=== PATIENT | male | born 1965 | race Caucasian/White ===

== ENCOUNTER 2017-04-03 17:54 | Inpatient (IN) | payer OTHER ==
[~2017-04-03] VITALS: Ht 121.9 cm; Wt 59.4 kg
--- NOTE | ~2017-04-03 | EKG ---
[address] [address] ELECTROCARDIOGRAM REPORT Name: SARASHAYNA A Room #: 170-4 ADM IN ..#: [id number] Admission: 04/03/17 Attend Phys: Daniel Cardoso Discharge: Date of : 67 Report #: [id number] THIS REPORT FOR: //name// [facility] ED Test Date: 2017-04-03 Test Time: 18:11:22 Pat Name: SHAYNA RUIZ Department: Room: [facility] Gender: M [employer] Person: NANCIE : 1965 Requested By: Chaka Castro Order Number: [id number] MD: Felipe Oquendo Measurements Intervals [place] Rate: 81 P: 17 MD: 122 QRS: -3 QRSD: 87 T: 85 QT: 390 QTc: 453 Interpretive Statements Sinus rhythm Compared to ECG 03/27/2017 07:43:39 Sinus bradycardia no longer present ST (T wave) deviation no longer present Prolonged QT interval no longer present Electronically Signed On 04-03-2017 21:15:15 CARE PROGRAM DIRECTOR by Felipe Oquendo [email or web address] <ELECTRONICALLY SIGNED> By: Felipe Oquendo MD 04/03/175 10 10 Felipe Oquendo MD /EPI
--- NOTE | ~2017-04-03 | HC ---
[facility] [place] [address] CONSULTATION Name: SHAYNA RUIZ Room #: 430-P [facility] IN .R.#: [id number] Admission: 04/03/17 Attend Phys: Celso Prado MD Discharge: Date of : 67 Report #: [id number] THIS REPORT FOR: //name// CC: Celso Peters DATE OF SERVICE: 04/04/2017 REASON FOR CONSULTATION: End-stage renal disease. HISTORY OF PRESENT ILLNESS: The patient is well known to our service. He has been seen multiple previous times for admission at this hospital. He is a chronic diabetic patient with severe cognitive impairment after previous intracranial hemorrhage. He is a chronic dialysis patient, lives at [facility]. He was discharged a couple of days ago to [place], but failed to get dialysis for reasons that are not entirely clear. He did go to his usual chronic unit, but for some reason they wound not accept him back for dialysis, so he missed his dialysis and now he is back here in his usual state of ill health. PAST MEDICAL HISTORY: Longstanding diabetes, bilateral koucj-spo-bxut amputations, bilateral failed arm fistula, dialyzing with Tesio catheter; coronary artery disease, previous coronary intervention and stents; frequent nausea and vomiting, he had a PEG tube, but that came out and he has been eating. SOCIAL HISTORY: Lives in an extended care facility and is severely cognitively impaired. REVIEW OF SYSTEMS: Cannot be taken due to his poor mental status. HOME MEDICATIONS: As listed include hydralazine 25 mg q.i.d., Renvela 1600 mg with meals, Lipitor 40 mg daily, Plavix 75 mg daily, Pepcid 20 mg daily, Synthroid 25 mcg daily, lisinopril 20 mg daily, nicotine patch, doxazosin 4 mg daily, amlodipine 10 mg daily, aspirin 81 mg daily, Keppra 500 mg daily, Seroquel 25 mg at bedtime, insulin, Requip 1 mg at bedtime. PHYSICAL EXAMINATION: GENERAL: This is a chronically ill-appearing patient, very lethargic, seen in bed, really not cooperating with questioning or exam. SKIN: Relatively unremarkable. SKELETAL: Bilateral xhkig-zhw-uhii amputations. No edema. HEENT: Extraocular movements cannot be tested. Pupils react. Vision appears to be intact. Mucous membranes moist. NECK: Supple. CHEST: Clear to auscultation. [facility] [address] [place] [address] CONSULTATION Name: SHAYNA RUIZ Room #: 430-P [facility] IN .R.#: [id number] Admission: 04/03/17 Attend Phys: Celso Prado MD Discharge: Date of : 67 Report #: [id number] HEART: Regular. ABDOMEN: Soft, no edema. ASSESSMENT: 1. End-stage renal disease. He is in need of dialysis. He is due for dialysis. We will dialyze him today, orders are written. 2. Severe cognitive impairment secondary to previous intracranial hemorrhage. 3. Diabetes mellitus with triopathy. 4. Peripheral arterial disease, status post bilateral qgnxj-nuc-hdle amputations. <ELECTRONICALLY SIGNED> By: Alex Carroll MD 04/06/17 1044 [id number] Alex Carroll MD /nt
[~2017-04-03 17:54] MED LIST: ALTACE 1.25 M1.25 M1 PO; AMLODIPINE BESY10 MG PO; ANTACID650 MG PO; ARANESP 4040 MCG/0.4 IJ; ASPIR 8181 MG PER TUBE; ASPIR 8181 MG PO; ASPIRIN EC81 M1 PO; ATORVASTATIN CA10 MG PO; BENADRYL25 MG PO; CARDURA4 MG PO; CARVEDILOL12.5 MG PO; CLOPIDOGREL75 MG PO; COREG6.25 MG; CYCLOBENZAPRINE10 MG PO; DOCUSATE SODIU100 MG PO; DUONEB 2.5-0.5 M3 ML INH; FLAGYL500 MG PO; FLUCONAZOLE 10100 MG PO; GLUCOSE GEL38 GM PO; GLUCOSE SHOT; GLUCOSE4 GM PO; HUMALOG100 UNIT/1 SUBQ; HYDRALAZINE 2525 MG PO; INSULIN PUMP; KEPPRA 500 MG500 M1 PER TUBE; LEVEMIR SUBQ; LEVOTHYROXIN0.025 MG PO; LIPITOR20 MG PO; LIPITOR40 MG PO; LISINOPRIL20 MG PO; LOPRESSOR 50 MG50 M1 PO; MEDROLDOSEPACK PO; NEPHROCAPS SOFT1 CAP PO; NICOTINE TRANSD21 M1; NOVOLOG100 UNIT/1 SUBQ; OMEPRAZOLE 20 M20 M1 PO; PEPCID20 MG PO; PLAVIX 75 MG TA75 M1 PO; PLAVIX 75 MG TA75 MG PO; PRILOSEC20 MG PO; PROTONIX40 M2 PO; RENVELA800 MG PO; REQUIP 1 MG TABL1 M1 PO; ROXICODONE5 M2 PO; SENSIPAR 30 MG30 M1; SENSIPAR 30 MG30 M1 PO; SEROQUEL 25 MG25 M1 PO; TIZANIDINE HCL4 M1 PO; VANCOMYCIN1 GM/250 M IV; ZANAFLEX4 MG PO; ZEMPLAR5 MCG/1 ML IV; ZOFRAN4 MG PO; [UNRECOGNIZED DRUG - OTHER]
[2017-04-03 17:56] VITALS: BP 214/99
[2017-04-03] MEDS ORDERED: GLUCAGON EMERGEN1 MG SUBQ (18:27)
[2017-04-03] MEDS ORDERED: SODIUM BICARBO650 M3 PO (18:31)
[2017-04-03 18:33] LABS: ABSOLUTE NEUTROPHILS 3.5 thou/uL (1.4-8.2); BASOPHILS 0.8 % (0.0-2.0); EOSINOPHILS 7.6 % (0.0-3.0); HEMOGLOBIN 8.7 gm/dL (14.0-18.0); LYMPHOCYTES 17.8 % (24.0-44.0); MCH 31.8 pg (26.0-34.0); MCHC 34.6 g/dL (28.0-37.0); MCV 91.6 fL (80.0-100.0); MONOCYTES 6.6 % (1.0-8.0); PLATELET COUNT 219 thou/uL (150-400); POLYS 67.2 % (36.0-66.0); RBC 2.73 mil/uL (4.50-6.00); WBC 5.2 thou/uL (4.0-11.0)
[2017-04-03 18:34] LABS: MANUAL DIFF NO
[2017-04-03 18:50] LABS: CALCIUM 9.1 mg/dL (8.5-10.1); CREATININE 6.1 mg/dL (0.7-1.3); POTASSIUM 5.1 mmol/L (3.5-5.1)
[2017-04-03 23:00] VITALS: BP 170/99
[2017-04-04 05:30] VITALS: BP 143/73
[2017-04-04 08:45] VITALS: BP 180/90
[2017-04-04 09:11] LABS: ALBUMIN 2.6 g/dL (3.4-5.0); CALCIUM 8.7 mg/dL (8.5-10.1); CREATININE 6.4 mg/dL (0.7-1.3); PHOSPHORUS 5.9 mg/dL (2.5-4.9); POTASSIUM 4.9 mmol/L (3.5-5.1)
[2017-04-04 20:00] VITALS: BP 143/80
[2017-04-04 23:24] VITALS: BP 169/73
[2017-04-05 05:30] VITALS: BP 148/86
[2017-04-05 19:52] VITALS: BP 171/87
[2017-04-06 08:30] VITALS: BP 187/94
[2017-04-06 15:00] VITALS: BP 225/95
[2017-04-06 16:26] VITALS: BP 180/60
[2017-04-06 19:03] VITALS: BP 202/57
[2017-04-07 00:10] VITALS: BP 187/95
[2017-04-07 06:00] VITALS: BP 731/95
[2017-04-07 08:00] VITALS: BP 175/47
[2017-04-07 22:04] VITALS: BP 182/89
[2017-04-07 23:18] VITALS: BP 174/93
[2017-04-07 23:30] VITALS: BP 171/93
[2017-04-08 00:08] VITALS: BP 126/75; BP 156/75
[2017-04-08 02:29] VITALS: BP 174/81
[2017-04-08 04:47] VITALS: BP 182/39
[2017-04-08 04:48] VITALS: BP 173/93
[2017-04-08 07:22] VITALS: BP 117/101
[2017-04-08 22:05] VITALS: BP 133/39
[2017-04-09 15:46] VITALS: BP 131/65
[2017-04-09 19:41] VITALS: BP 129/69
[2017-04-09 23:30] VITALS: BP 141/77
[2017-04-10 04:30] VITALS: BP 138/84
[2017-04-10 06:52] LABS: HEMATOCRIT 23.2 % (42.0-52.0); MCH 31.8 pg (26.0-34.0); MCHC 34.5 g/dL (28.0-37.0); MCV 92.1 fL (80.0-100.0); PLATELET COUNT 185 thou/uL (150-400); RBC 2.52 mil/uL (4.50-6.00); RDW 15.3 % (10.5-14.5); WBC 5.4 thou/uL (4.0-11.0)
[2017-04-10 06:58] LABS: MANUAL DIFF YES
[2017-04-10 07:22] LABS: CALCIUM 9.3 mg/dL (8.5-10.1); CREATININE 3.5 mg/dL (0.7-1.3); POTASSIUM 4.5 mmol/L (3.5-5.1)
[2017-04-10 08:20] LABS: ABSOLUTE NEUTROPHILS 4.5 thou/uL (1.4-8.2); ANISOCYTOSIS 1+; TOTAL CELL COUNT 100
[2017-04-10 08:23] VITALS: BP 170/86
[2017-04-10 15:17] VITALS: BP 190/87
[2017-04-10 19:37] VITALS: BP 151/95
[2017-04-11 08:08] VITALS: BP 162/91
[2017-04-11 20:55] VITALS: BP 191/62
[2017-04-12 08:00] VITALS: BP 130/87
[2017-04-12 11:52] VITALS: BP 146/83
[2017-04-12 15:55] VITALS: BP 151/79
[2017-04-12 20:06] VITALS: BP 146/59
[2017-04-13 03:46] VITALS: BP 154/48
[2017-04-13 06:48] LABS: ABSOLUTE NEUTROPHILS 3.5 thou/uL (1.4-8.2); BASOPHILS 0.6 % (0.0-2.0); EOSINOPHILS 6.2 % (0.0-3.0); HEMOGLOBIN 6.8 gm/dL (14.0-18.0); LYMPHOCYTES 16.7 % (24.0-44.0); MCHC 34.6 g/dL (28.0-37.0); MCV 92.7 fL (80.0-100.0); MONOCYTES 8.1 % (1.0-8.0); PLATELET COUNT 186 thou/uL (150-400); POLYS 68.4 % (36.0-66.0); RBC 2.12 mil/uL (4.50-6.00); RDW 15.5 % (10.5-14.5); WBC 5.1 thou/uL (4.0-11.0)
[2017-04-13 06:49] LABS: MANUAL DIFF NO
[2017-04-13 06:51] LABS: HEMATOCRIT 19.6 % (42.0-52.0)
[2017-04-13 07:06] LABS: CREATININE 4.4 mg/dL (0.7-1.3); POTASSIUM 4.6 mmol/L (3.5-5.1)
[2017-04-13 08:45] VITALS: BP 166/94
[2017-04-13 10:20] VITALS: BP 144/86; BP 173/97
[2017-04-13] MEDS ORDERED: CIPRO HC OTIC S10 ML OTIC (11:29)
[2017-04-13] MEDS ORDERED: KEPPRA 500 MG500 M1 PO (11:29)
== END 2017-04-13 12:00 | DRG 682 ==
LOC: ER 17:54 → EROBS 20:59 → 4E 20:59
PROVIDERS: Emergency Medicine; Internal Medicine Endocrinology, Diabetes & Metabolism; Internal Medicine Nephrology
PROC: 5A1D70Z Performance of Urinary Filtration, Intermittent, Less than 6 Hours Per Day (ICD-10-PCS; principal; 2017-04-04)
PROC: 5A1D70Z Performance of Urinary Filtration, Intermittent, Less than 6 Hours Per Day (ICD-10-PCS; 2017-04-05)
PROC: 5A1D70Z Performance of Urinary Filtration, Intermittent, Less than 6 Hours Per Day (ICD-10-PCS; 2017-04-08)
PROC: 5A1D70Z Performance of Urinary Filtration, Intermittent, Less than 6 Hours Per Day (ICD-10-PCS; 2017-04-12)
PROC: 30233N1 Transfusion of Nonautologous Red Blood Cells into Peripheral Vein, Percutaneous Approach (ICD-10-PCS; 2017-04-13)
DX: I12.0 Hypertensive chronic kidney disease with stage 5 chronic kidney disease or end stage renal disease (principal); N18.6 End stage renal disease; G93.40 Encephalopathy, unspecified; K21.9 Gastro-esophageal reflux disease without esophagitis; E78.00 Pure hypercholesterolemia, unspecified; F17.210 Nicotine dependence, cigarettes, uncomplicated; I25.10 Atherosclerotic heart disease of native coronary artery without angina pectoris; G31.84 Mild cognitive impairment of uncertain or unknown etiology; E11.51 Type 2 diabetes mellitus with diabetic peripheral angiopathy without gangrene; G40.909 Epilepsy, unspecified, not intractable, without status epilepticus; D63.8 Anemia in other chronic diseases classified elsewhere; F79 Unspecified intellectual disabilities; S42.122A Displaced fracture of acromial process, left shoulder, initial encounter for closed fracture; R45.1 Restlessness and agitation; E11.65 Type 2 diabetes mellitus with hyperglycemia; E11.22 Type 2 diabetes mellitus with diabetic chronic kidney disease; E11.649 Type 2 diabetes mellitus with hypoglycemia without coma; Z79.82 Long term (current) use of aspirin; Z98.52 Vasectomy status; Z90.49 Acquired absence of other specified parts of digestive tract; Z79.4 Long term (current) use of insulin; Z95.5 Presence of coronary angioplasty implant and graft; Z89.612 Acquired absence of left leg above knee; Z89.611 Acquired absence of right leg above knee; Z90.3 Acquired absence of stomach [part of]; Z79.899 Other long term (current) drug therapy; Z28.21 Immunization not carried out because of patient refusal; Z99.2 Dependence on renal dialysis; X58.XXXA Exposure to other specified factors, initial encounter; Y93.89 Activity, other specified; Y92.89 Other specified places as the place of occurrence of the external cause; Y99.8 Other external cause status
CPT/HCPCS: 10183; 32100

== ENCOUNTER → 2017-06-14 | Outpatient (CLI) | payer OTHER ==
[~2017-06-14] MED LIST changes: +CIPRO HC OTIC S10 ML OTIC; +GLUCAGON EMERGEN1 MG SUBQ; +KEPPRA 500 MG500 M1 PO; +SODIUM BICARBO650 M3 PO
[2017-06-14 08:54] VITALS: BP 157/27
[2017-06-14 09:14] LABS: HEMATOCRIT 26.6 % (42.0-52.0); HEMOGLOBIN 8.9 gm/dL (14.0-18.0); MCH 31.9 pg (26.0-34.0); MCHC 33.5 g/dL (28.0-37.0); MCV 95.2 fL (80.0-100.0); RBC 2.79 mil/uL (4.50-6.00); RDW 16.2 % (10.5-14.5); WBC 5.8 thou/uL (4.0-11.0)
[2017-06-14 09:26] LABS: CREATININE 3.7 mg/dL (0.7-1.3); POTASSIUM 4.9 mmol/L (3.5-5.1)
[2017-06-14 09:28] LABS: APTT 29.9 Seconds (24.5-32.8); INR 1.1; PROTIME 11.4 Seconds (9.3-11.4)
== END ==
LOC: SPEC 06-12 10:41
PROVIDERS: Radiology Diagnostic Radiology
DX: T85.621A Displacement of intraperitoneal dialysis catheter, initial encounter (principal); E11.51 Type 2 diabetes mellitus with diabetic peripheral angiopathy without gangrene; I12.9 Hypertensive chronic kidney disease with stage 1 through stage 4 chronic kidney disease, or unspecified chronic kidney disease; E11.22 Type 2 diabetes mellitus with diabetic chronic kidney disease; N18.9 Chronic kidney disease, unspecified; I10 Essential (primary) hypertension; K21.9 Gastro-esophageal reflux disease without esophagitis; E78.5 Hyperlipidemia, unspecified; Z95.5 Presence of coronary angioplasty implant and graft; Z98.890 Other specified postprocedural states; Z79.899 Other long term (current) drug therapy; Z90.49 Acquired absence of other specified parts of digestive tract